=== PATIENT | female | born 1945 | race Caucasian/White ===

== ENCOUNTER → 2023-12-06 07:08 | Outpatient (REF) | payer MEDICARE, SELFPAY ==
[2023-12-06 07:34] LABS: Hematocrit 39.1 % (37.0-47.0); Hemoglobin 13.3 g/dL (12.0-16.0); Mean Corpuscular Hgb 31.5 pg (27.0-31.0); Mean Corpuscular Volume 92.7 fL (81.0-99.0); Mean Platelet Volume 10.6 fL (7.4-10.4); Platelet Count 299 10^3/uL (130-400); Red Blood Cell Count 4.22 10^6/uL (4.20-5.40); Red Cell Dist. Width 12.6 % (11.5-14.5); White Blood Cell Count 6.7 10^3/uL (4.8-10.8)
[2023-12-06 08:01] LABS: ALT (SGPT) 19 U/L (0-35); AST (SGOT) 31 U/L (14-36); Albumin 4.3 g/dl (3.5-5.0); Alkaline Phosphatase 73 U/L (38-126); Blood Urea Nitrogen 15 mg/dl (7-17); Calcium 9.5 mg/dl (8.4-10.2); Carbon Dioxide 29 mmol/L (22-30); Chloride 100 mmol/L (98-107); Glucose 94 mg/dl (70-99); HDL Cholesterol 62 mg/dl; LDL Cholesterol, Calculated 51 mg/dl; Potassium 5.4 mmol/L (3.5-5.1); Sodium 135 mmol/L (135-145); Total Bilirubin 0.7 mg/dl (0.2-1.3); Total Cholesterol 132 mg/dl (50-199); Total Protein 7.3 g/dl (6.3-8.2); Triglyceride 95 mg/dl (10-149); Very Low Density Lipoprotein 19 mg/dl (0-30); eGFR > 60.00
[2023-12-06 08:25] LABS: Free T4 1.33 ng/dl (0.78-2.19); Vitamin D, 25-OH*** 51.1 ng/mL (30-80)
[2023-12-06 08:38] LABS: TSH 3.91 uIU/ml (0.47-4.68)
== END ==
LOC: REG 07:08
PROVIDERS: ATTENDING PHYSICIAN Family Medicine
DX: E55.9 Vitamin D deficiency, unspecified (principal); E78.2 Mixed hyperlipidemia; R53.83 Other fatigue
CPT/HCPCS: 36415; 80053; 80061; 82306; 84439; 84443; 85027

== ENCOUNTER → 2024-11-14 07:19 | Outpatient (REF) | payer MEDICARE, SELFPAY ==
[2024-11-14 08:33] LABS: % Basophils 0.4 % (0-2); % Eosinophils 1.1 % (0-6); % Immature Granulocytes 0.6 % (0-0.5); % Lymphocytes 11.6 % (20.5-51.1); % Monocytes 12.5 % (1.7-9.3); % Neutrophils 73.8 % (42.2-75.2); Absolute Eosinophils 0.1 10^3/uL (0-0.7); Absolute Lymphocytes 0.8 10^3/uL (1.2-3.4); Absolute Monocytes 0.9 10^3/uL (0.1-0.6); Absolute Neutrophils 5.3 10^3/uL (1.4-6.5); Hematocrit 38.4 % (37.0-47.0); Mean Corp Hgb Conc. 33.9 g/dL (33.0-37.0); Mean Corpuscular Volume 91.4 fL (81.0-99.0); Mean Platelet Volume 9.3 fL (7.4-10.4); Nucleated Red Blood Cells % 0 %; Platelet Count 348 10^3/uL (130-400); Red Cell Dist. Width 12.6 % (11.5-14.5); White Blood Cell Count 7.2 10^3/uL (4.8-10.8)
[2024-11-14 09:08] LABS: ALT (SGPT) 27 U/L (0-35); AST (SGOT) 43 U/L (14-36); Albumin 4.8 g/dl (3.5-5.0); Alkaline Phosphatase 65 U/L (38-126); Blood Urea Nitrogen 21 mg/dl (7-17); Calcium 9.8 mg/dl (8.4-10.2); Carbon Dioxide 25 mmol/L (22-30); Chloride 96 mmol/L (98-107); Glucose 96 mg/dl (70-99); HDL Cholesterol 80 mg/dl; LDL Cholesterol, Calculated 73 mg/dl; Potassium 4.4 mmol/L (3.5-5.1); Sodium 132 mmol/L (135-145); Total Bilirubin 0.9 mg/dl (0.2-1.3); Total Cholesterol 165 mg/dl (50-199); Total Protein 7.5 g/dl (6.3-8.2); Triglyceride 61 mg/dl (10-149); Very Low Density Lipoprotein 12 mg/dl (0-30); eGFR > 60.00
[2024-11-14 09:21] LABS: Vitamin D, 25-OH*** 44.2 ng/mL (30-80)
== END ==
LOC: REG 07:19
PROVIDERS: ATTENDING PHYSICIAN Family Medicine
DX: E78.2 Mixed hyperlipidemia (principal); Z00.01 Encounter for general adult medical examination with abnormal findings; E03.9 Hypothyroidism, unspecified; I10 Essential (primary) hypertension; E55.9 Vitamin D deficiency, unspecified
CPT/HCPCS: 36415; 80053; 80061; 82306; 84443; 85025

== ENCOUNTER → 2024-11-18 10:06 | Outpatient (REF) | payer MEDICARE, SELFPAY | LOC: RCS 10:06 | PROVIDERS: ATTENDING PHYSICIAN Internal Medicine Cardiovascular Disease; FAMILY PHYSICIAN Family Medicine | DX: I35.0 Nonrheumatic aortic (valve) stenosis (principal) | CPT/HCPCS: 93306 ==